=== PATIENT | female | born 1995 | race Two or more races ===

== ENCOUNTER 2021-09-01 12:28 | Emergency (ER) | payer MEDICAID, OTHER ==
[~2021-09-01] VITALS: Ht 152.4 cm; Wt 52.0 kg
[2021-09-01 14:13] LABS: Basophils # (auto) 0 10 ^3/uL (0-0.2); Basophils % (auto) 0.3 % (0.0-2.0); Eosinophils # (auto) 0 10 ^3/uL (0-0.8); Eosinophils % (auto) 0.4 % (0.0-7.0); Hemoglobin 13.8 g/dL (12.2-16.2); Lymphocytes # (auto) 0.7 10 ^3/uL (0.4-5.4); Lymphocytes % (auto) 11.3 % (10.0-50.0); Mean Corpuscular Hemoglobin 27.9 pg (28.0-32.0); Mean Corpuscular Hgb Conc. 32.8 g/dL (32.0-36.0); Mean Corpuscular Volume 84.9 fL (80.0-100.0); Monocytes # (auto) 0.2 10 ^3/uL (0-1.3); Monocytes % (auto) 3.1 % (0.0-12.0); Neutrophils % (auto) 84.9 % (37.0-80.0); Red Blood Cells 4.94 10^6/uL (4.0-5.20); Red Cell Distribution Width 13.6 % (11.8-14.3); White Blood Cell 5.9 10^3/uL (4.4-10.8)
[2021-09-01 14:29] LABS: Calcium 8.6 mg/dL (8.5-10.1); Potassium 4.3 mmol/L (3.5-5.1)
[2021-09-01 14:35] LABS: Albumin 3.6 g/dL (3.4-5.0); BUN/Creatinine Ratio 14.8; Bilirubin, Total 0.6 mg/dL (0.2-1.0); Total Protein 7.6 g/dL (6.4-8.2)
[2021-09-01 14:49] LABS: Urine Bacteria NONE SEEN /hpf (None Seen); Urine Blood TRACE /uL (Negative); Urine WBC 196 /hpf (0 - 5); Urine WBC Clumps PRESENT /hpf (None Seen)
[2021-09-01] MEDS ORDERED: ONDANSETRON HCL 4 MG/2 ML VIAL IV ONE (18:30)
[2021-09-01] MEDS ORDERED: MORPHINE SULFATE INJ 2 MG/ml SYRG IV ONE (18:30)
[2021-09-01] MEDS ORDERED: cefTRIAXone 1GM/50ML D5W 50 ML IV ONE (18:30)
[2021-09-01 18:48] VITALS: BP 117/73
== END 2021-09-01 19:22 | disposition hospice, inpatient (51) ==
LOC: ER 12:28 → EDBD 12:28 → ER 19:22
DX: R55 Syncope and collapse (principal); N39.0 Urinary tract infection, site not specified; G93.5 Compression of brain; Z20.822 Contact with and (suspected) exposure to COVID-19
CPT/HCPCS: 36415; 70450; 80053; 81001; 84484; 85025; 87426; 93005; 96365; 96375; 99285; J0696; J2270; J2405

== ENCOUNTER 2021-10-11 14:17 | Emergency (ER) | payer MEDICAID ==
[~2021-10-11] VITALS: Ht 157.5 cm; Wt 45.4 kg
[2021-10-11 14:32] VITALS: BP 112/73
[2021-10-11 15:30] LABS: Basophils # (auto) 0 10 ^3/uL (0-0.2); Basophils % (auto) 0.4 % (0.0-2.0); Eosinophils # (auto) 0.1 10 ^3/uL (0-0.8); Eosinophils % (auto) 2.2 % (0.0-7.0); Hematocrit 37.1 % (36.0-46.0); Hemoglobin 12.3 g/dL (12.2-16.2); Lymphocytes # (auto) 1.2 10 ^3/uL (0.4-5.4); Lymphocytes % (auto) 18.6 % (10.0-50.0); Mean Corpuscular Hemoglobin 28.3 pg (28.0-32.0); Mean Corpuscular Volume 85.7 fL (80.0-100.0); Monocytes # (auto) 0.3 10 ^3/uL (0-1.3); Monocytes % (auto) 5.2 % (0.0-12.0); Neutrophils # (auto) 4.6 10 ^3/uL (1.6-8.6); Neutrophils % (auto) 73.6 % (37.0-80.0); Nucleated Red Blood Cells % 0.1 %; Red Blood Cells 4.33 10^6/uL (4.0-5.20); Red Cell Distribution Width 13.6 % (11.8-14.3); White Blood Cell 6.2 10^3/uL (4.4-10.8)
[2021-10-11 15:45] LABS: Albumin 3.5 g/dL (3.4-5.0); Calcium 8.9 mg/dL (8.5-10.1); Potassium 3.5 mmol/L (3.5-5.1)
[2021-10-11 16:00] LABS: BUN/Creatinine Ratio 11.7; Bilirubin, Total 0.4 mg/dL (0.2-1.0); Total Protein 7.6 g/dL (6.4-8.2)
[2021-10-11 17:22] LABS: Urine Bacteria NONE SEEN /hpf (None Seen); Urine Blood Negative /uL (Negative); Urine Specific Gravity 1.011 (1.001-1.035); Urine WBC 36 /hpf (0 - 5)
[2021-10-11] MEDS ORDERED: SODIUM CHLORIDE 0.9% 1,000 ML IV ONE (19:15)
[2021-10-11] MEDS ORDERED: NITR-87 PO (19:47)
== END 2021-10-12 00:10 | disposition left against medical advice (07) ==
LOC: ER 14:17
DX: N12 Tubulo-interstitial nephritis, not specified as acute or chronic (principal); R41.82 Altered mental status, unspecified; R55 Syncope and collapse
CPT/HCPCS: 36415; 70450; 80053; 81001; 85025; 93005

== ENCOUNTER 2022-07-08 06:21 | Inpatient (IN) | payer MEDICAID ==
[2022-07-02 11:02] LABS: Basophils # (auto) 0 10 ^3/uL (0-0.2); Basophils % (auto) 0.7 % (0.0-2.0); Eosinophils # (auto) 0.1 10 ^3/uL (0-0.8); Eosinophils % (auto) 1.7 % (0.0-7.0); Hemoglobin 13.6 g/dL (12.2-16.2); Lymphocytes # (auto) 1.4 10 ^3/uL (0.4-5.4); Mean Corpuscular Hemoglobin 28.5 pg (28.0-32.0); Mean Corpuscular Hgb Conc. 33.2 g/dL (32.0-36.0); Mean Corpuscular Volume 85.6 fL (80.0-100.0); Monocytes # (auto) 0.3 10 ^3/uL (0-1.3); Monocytes % (auto) 6.8 % (0.0-12.0); Neutrophils # (auto) 2.5 10 ^3/uL (1.6-8.6); Neutrophils % (auto) 58.8 % (37.0-80.0); Nucleated Red Blood Cells % 0.1 %; Red Blood Cells 4.79 10^6/uL (4.0-5.20); Red Cell Distribution Width 13.6 % (11.8-14.3); White Blood Cell 4.3 10^3/uL (4.4-10.8)
[2022-07-02 11:14] LABS: Urine Bacteria NONE SEEN /hpf (None Seen); Urine Blood Negative /uL (Negative); Urine Specific Gravity 1.008 (1.001-1.035); Urine WBC 2 /hpf (0 - 5)
[2022-07-02 11:28] LABS: INR 1.01 (0.9-1.15); Partial Thromboplastin Time 28.8 sec (24.6-33.4)
[2022-07-02 11:37] LABS: Albumin 3.4 g/dL (3.4-5.0); Calcium 8.8 mg/dL (8.5-10.1); Potassium 3.5 mmol/L (3.5-5.1)
[2022-07-02 11:41] LABS: BUN/Creatinine Ratio 10.2 (10.0-20.0); Bilirubin, Total 0.4 mg/dL (0.2-1.0); Total Protein 7.1 g/dL (6.4-8.2)
[~2022-07-08] VITALS: Ht 157.5 cm; Wt 47.2 kg
[2022-07-08] MEDS ORDERED: IOHEXOL 300 MG/ML 100ML BOTTLE IJ ONE (06:58)
[2022-07-08] MEDS ORDERED: CIPROFLOXACIN 400MG/200ML 200 ML IV ONE (07:17)
[2022-07-08] MEDS ORDERED: fentaNYL CITRATE 100 MCG/2 ML VL ONE (07:25)
[2022-07-08] MEDS ORDERED: MEPERIDINE HCL (25 MG/ML) 1ML VIAL ONE (07:25)
[2022-07-08] MEDS ORDERED: MIDAZOLAM HCL 2MG/2ML 2ml VIAL (1mg/ml) ONE (07:25)
[2022-07-08] MEDS ORDERED: DexAMETHasone SOD PHOS 10MG/1ML VIAL INJ ONE (07:50)
[2022-07-08] MEDS ORDERED: PROPOFOL 10 MG/ML 20 ML IV ONE (07:50)
[2022-07-08] MEDS ORDERED: diphenhdrAMINE HCL 50 MG/1 ML VL ONE (07:50)
[2022-07-08] MEDS ORDERED: MIDAZOLAM HCL 2MG/2ML 2ml VIAL (1mg/ml) IV PRN (08:00)
[2022-07-08] MEDS ORDERED: ePHEDrine SULFATE 50 MG/ML AMP IV PRN (08:00)
[2022-07-08] MEDS ORDERED: LABETALOL HCL 5 MG/ML 4ML SYRINGE IV PRN (08:00)
[2022-07-08] MEDS ORDERED: MORPHINE SULFATE 4 MG/ML SYR/VIAL IV PRN (08:00)
[2022-07-08] MEDS ORDERED: ONDANSETRON HCL 4 MG/2 ML VIAL IV PRN (08:00)
[2022-07-08] MEDS ORDERED: NITROGLYCERIN 0.4 MG SL TAB SL PRN (08:30)
[2022-07-08] MEDS ORDERED: MORPHINE SULFATE INJ 2 MG/ml SYRG IV PRN (08:30)
[2022-07-08] MEDS ORDERED: ONDANSETRON HCL 4 MG/2 ML VIAL IV ONE (08:40)
[2022-07-08] MEDS ORDERED: MORPHINE SULFATE 4 MG/ML SYR/VIAL IV ONE (08:40)
[2022-07-08] MEDS ORDERED: FUROSEMIDE 40 MG/4 ML VIAL IV ONE (09:15)
[2022-07-08 14:15] VITALS: BP 108/71
== END 2022-07-08 14:33 | disposition home or self-care (01) | DRG 465 ==
LOC: SUR 06:21 → OBSVTOIN 08:31 → OVERFLOW 08:31
PROVIDERS: ADMIT Urology; ATTEND Urology
PROC: 0TJB8ZZ Inspection of Bladder, Via Natural or Artificial Opening Endoscopic (ICD-10-PCS; principal; 2022-07-08 07:30)
DX: N13.30 Unspecified hydronephrosis (principal); N20.0 Calculus of kidney; N31.9 Neuromuscular dysfunction of bladder, unspecified; Q05.9 Spina bifida, unspecified; Z87.440 Personal history of urinary (tract) infections
CPT/HCPCS: 36415; 74176; 78707; 80053; 81001; 84132; 84702; 85025; 85610; 85730; 87086; G0378; J1100; J2250; J2405; J2704

== ENCOUNTER 2022-07-28 13:52 | Inpatient (IN) | payer MEDICAID ==
[~2022-07-28] VITALS: Ht 157.5 cm; Wt 50.0 kg
[2022-07-28 15:46] LABS: Urine Bacteria NONE SEEN /hpf (None Seen); Urine Blood Negative /uL (Negative); Urine Specific Gravity 1.008 (1.001-1.035); Urine WBC 34 /hpf (0 - 5)
[2022-07-28] MEDS ORDERED: SODIUM CHLORIDE 0.9% 1,000 ML IV ONE (17:45)
[2022-07-28] MEDS ORDERED: KETOROLAC TROMETH 30 MG/ML 1ML VIAL IV ONE (17:45)
[2022-07-28] MEDS ORDERED: ONDANSETRON HCL 4 MG/2 ML VIAL IV ONE (18:00)
[2022-07-28 18:34] LABS: Albumin 3.7 g/dL (3.4-5.0); Basophils # (auto) 0 10 ^3/uL (0-0.2); Basophils % (auto) 0.4 % (0.0-2.0); Calcium 8.4 mg/dL (8.5-10.1); Eosinophils # (auto) 0 10 ^3/uL (0-0.8); Eosinophils % (auto) 0.9 % (0.0-7.0); Hematocrit 39.1 % (36.0-46.0); Hemoglobin 13.1 g/dL (12.2-16.2); Lymphocytes # (auto) 1.7 10 ^3/uL (0.4-5.4); Lymphocytes % (auto) 35.1 % (10.0-50.0); Mean Corpuscular Hemoglobin 28.5 pg (28.0-32.0); Mean Corpuscular Hgb Conc. 33.5 g/dL (32.0-36.0); Mean Corpuscular Volume 85.1 fL (80.0-100.0); Monocytes # (auto) 0.3 10 ^3/uL (0-1.3); Monocytes % (auto) 5.7 % (0.0-12.0); Neutrophils # (auto) 2.9 10 ^3/uL (1.6-8.6); Neutrophils % (auto) 57.9 % (37.0-80.0); Nucleated Red Blood Cells % 0.4 %; Potassium 4.1 mmol/L (3.5-5.1); Red Blood Cells 4.59 10^6/uL (4.0-5.20); Red Cell Distribution Width 13.7 % (11.8-14.3)
[2022-07-28 18:38] LABS: BUN/Creatinine Ratio 10.3 (10.0-20.0); Bilirubin, Total 0.4 mg/dL (0.2-1.0); Total Protein 6.8 g/dL (6.4-8.2)
[2022-07-28] MEDS ORDERED: cefTRIAXone 1GM/50ML D5W 50 ML IV ONE (20:00)
[2022-07-28 22:42] LABS: Urine Bacteria NONE SEEN /hpf (None Seen); Urine Blood Negative /uL (Negative); Urine Specific Gravity 1.008 (1.001-1.035); Urine WBC 13 /hpf (0 - 5)
[2022-07-29 07:03] LABS: Basophils # (auto) 0 10 ^3/uL (0-0.2); Basophils % (auto) 0.5 % (0.0-2.0); Eosinophils # (auto) 0.1 10 ^3/uL (0-0.8); Eosinophils % (auto) 1.2 % (0.0-7.0); Hematocrit 35.1 % (36.0-46.0); Hemoglobin 12.1 g/dL (12.2-16.2); Lymphocytes # (auto) 1.3 10 ^3/uL (0.4-5.4); Lymphocytes % (auto) 25.9 % (10.0-50.0); Mean Corpuscular Hgb Conc. 34.4 g/dL (32.0-36.0); Mean Corpuscular Volume 84.3 fL (80.0-100.0); Monocytes # (auto) 0.3 10 ^3/uL (0-1.3); Monocytes % (auto) 5.8 % (0.0-12.0); Neutrophils # (auto) 3.3 10 ^3/uL (1.6-8.6); Neutrophils % (auto) 66.6 % (37.0-80.0); Nucleated Red Blood Cells % 0.1 %; Red Blood Cells 4.16 10^6/uL (4.0-5.20); Red Cell Distribution Width 13.3 % (11.8-14.3)
[2022-07-29 07:36] LABS: Potassium 4.5 mmol/L (3.5-5.1)
[2022-07-29 07:43] LABS: BUN/Creatinine Ratio 10.8 (10.0-20.0); Bilirubin, Total 0.5 mg/dL (0.2-1.0); Calcium 8.4 mg/dL (8.5-10.1)
[2022-07-29] MEDS ORDERED: cefTRIAXone 1GM/50ML D5W 50 ML IV SCH (09:00)
[2022-07-29] MEDS: PANTOPRAZOLE 40 MG/10 ML VIAL INJ IV SCH (09:58)
[2022-07-29] MEDS ORDERED: IOTHALAMATE MEGLUMINE INJ 250ML BOT UR ONE (10:05)
[2022-07-29] MEDS ORDERED: ONDANSETRON HCL 4 MG/2 ML VIAL IV PRN (13:30)
[2022-07-29] MEDS ORDERED: ERTAPENEM SOD INJ 1 GM in SODIUM CHL 0.9% 50 ML IV ONE (13:30)
[2022-07-29] MEDS: SODIUM CHLORIDE 0.9% 1,000 ML IV SCH ×2 (17:31→23:41)
[2022-07-29] MEDS: MORPHINE SULFATE INJ 2 MG/ml SYRG IV PRN ×2 (17:32→21:56)
[2022-07-29 22:00] VITALS: BP_SYST 125; BP_SYST 129; BP_SYST 138; BP_DIAS 89; BP_DIAS 93; BP_DIAS 94
[2022-07-29] MEDS: AMITRIPTYLINE HCL 10 MG TAB PO SCH (23:40)
[2022-07-29 23:44] VITALS: BP 129/93
[2022-07-30] MEDS ORDERED: CEPH250C PO (01:46)
[2022-07-30] MEDS ORDERED: ACET-1304 PO (01:46)
[2022-07-30 05:00] VITALS: BP_SYST 115; BP_SYST 117; BP_DIAS 65; BP_DIAS 71; BP_DIAS 73
[2022-07-30 05:59] LABS: Protein, Urine 87.6 mg/dL (0.0-11.9)
[2022-07-30] MEDS: SODIUM CHLORIDE 0.9% 1,000 ML IV SCH ×3 (06:00→19:30)
[2022-07-30 06:48] LABS: Basophils # (auto) 0 10 ^3/uL (0-0.2); Basophils % (auto) 0.7 % (0.0-2.0); Eosinophils # (auto) 0.1 10 ^3/uL (0-0.8); Eosinophils % (auto) 3.4 % (0.0-7.0); Hematocrit 33.4 % (36.0-46.0); Hemoglobin 11.4 g/dL (12.2-16.2); Lymphocytes # (auto) 1.4 10 ^3/uL (0.4-5.4); Lymphocytes % (auto) 32.8 % (10.0-50.0); Mean Corpuscular Hemoglobin 28.6 pg (28.0-32.0); Mean Corpuscular Hgb Conc. 34.1 g/dL (32.0-36.0); Mean Corpuscular Volume 83.8 fL (80.0-100.0); Monocytes # (auto) 0.4 10 ^3/uL (0-1.3); Monocytes % (auto) 9.9 % (0.0-12.0); Neutrophils # (auto) 2.2 10 ^3/uL (1.6-8.6); Neutrophils % (auto) 53.2 % (37.0-80.0); Nucleated Red Blood Cells % 0.1 %; Red Blood Cells 3.99 10^6/uL (4.0-5.20); White Blood Cell 4.2 10^3/uL (4.4-10.8)
[2022-07-30 06:58] LABS: BUN/Creatinine Ratio 9.4 (10.0-20.0); Calcium 8.3 mg/dL (8.5-10.1); Potassium 4.2 mmol/L (3.5-5.1)
[2022-07-30 08:00] VITALS: BP_SYST 101; BP_SYST 113; BP_SYST 121; BP_DIAS 67; BP_DIAS 73; BP_DIAS 74
[2022-07-30] MEDS: ERTAPENEM SOD INJ 1 GM in SODIUM CHL 0.9% 50 ML IV SCH (09:50)
[2022-07-30] MEDS: PANTOPRAZOLE 40 MG/10 ML VIAL INJ IV SCH (09:51)
[2022-07-30] MEDS ORDERED: LACTULOSE 20Gm/30ML SOLN PO ONE (10:00)
[2022-07-30 12:00] VITALS: BP_SYST 109; BP_SYST 114; BP_SYST 120; BP_DIAS 77; BP_DIAS 85
[2022-07-30 16:00] VITALS: BP_SYST 109; BP_SYST 119; BP_SYST 120; BP_DIAS 80; BP_DIAS 81; BP_DIAS 84
[2022-07-30] MEDS: ACETAMINOPHEN 500 MG TAB PO PRN (16:30)
[2022-07-30] MEDS: AMITRIPTYLINE HCL 10 MG TAB PO SCH (21:13)
[2022-07-30 23:17] VITALS: BP_SYST 120; BP_SYST 129; BP_SYST 133; BP_DIAS 85; BP_DIAS 86; BP_DIAS 89
[2022-07-31] MEDS: SODIUM CHLORIDE 0.9% 1,000 ML IV SCH ×2 (05:30→15:30)
[2022-07-31 05:36] VITALS: BP_SYST 110; BP_SYST 113; BP_SYST 119; BP_DIAS 70; BP_DIAS 74; BP_DIAS 78
[2022-07-31 09:23] VITALS: BP 133/75
[2022-07-31] MEDS: PANTOPRAZOLE 40 MG/10 ML VIAL INJ IV SCH (10:34)
[2022-07-31] MEDS: ERTAPENEM SOD INJ 1 GM in SODIUM CHL 0.9% 50 ML IV SCH (10:35)
[2022-07-31 13:10] VITALS: BP 114/69
[2022-07-31 16:20] VITALS: BP 128/80
[2022-07-31] MEDS: AMITRIPTYLINE HCL 10 MG TAB PO SCH (21:46)
[2022-07-31 22:00] VITALS: BP 115/86
[2022-08-01] MEDS: SODIUM CHLORIDE 0.9% 1,000 ML IV SCH ×3 (01:30→21:30)
[2022-08-01 05:00] VITALS: BP 112/70
[2022-08-01 06:53] LABS: Albumin 2.7 g/dL (3.4-5.0); BUN/Creatinine Ratio 11.4 (10.0-20.0); Calcium 8.2 mg/dL (8.5-10.1)
[2022-08-01 06:55] LABS: Basophils # (auto) 0 10 ^3/uL (0-0.2); Basophils % (auto) 0.6 % (0.0-2.0); Eosinophils # (auto) 0.2 10 ^3/uL (0-0.8); Eosinophils % (auto) 3.9 % (0.0-7.0); Hematocrit 33.1 % (36.0-46.0); Hemoglobin 11.6 g/dL (12.2-16.2); Lymphocytes # (auto) 1.7 10 ^3/uL (0.4-5.4); Mean Corpuscular Hemoglobin 29.2 pg (28.0-32.0); Mean Corpuscular Hgb Conc. 35.1 g/dL (32.0-36.0); Monocytes # (auto) 0.3 10 ^3/uL (0-1.3); Monocytes % (auto) 7.6 % (0.0-12.0); Neutrophils % (auto) 47.9 % (37.0-80.0); Nucleated Red Blood Cells % 0.1 %; Red Blood Cells 3.99 10^6/uL (4.0-5.20); Red Cell Distribution Width 12.7 % (11.8-14.3); White Blood Cell 4.3 10^3/uL (4.4-10.8)
[2022-08-01 06:56] LABS: Bilirubin, Total 0.3 mg/dL (0.2-1.0); Total Protein 5.9 g/dL (6.4-8.2)
[2022-08-01 08:46] VITALS: BP 111/76
[2022-08-01] MEDS ORDERED: NITR-87 PO (09:08)
[2022-08-01] MEDS: ERTAPENEM SOD INJ 1 GM in SODIUM CHL 0.9% 50 ML IV SCH (09:26)
[2022-08-01] MEDS: PANTOPRAZOLE 40 MG/10 ML VIAL INJ IV SCH (09:27)
[2022-08-01 12:42] VITALS: BP 123/65
[2022-08-01 16:36] VITALS: BP 126/65
[2022-08-01 22:00] VITALS: BP 138/91
[2022-08-01] MEDS: ACETAMINOPHEN 500 MG TAB PO PRN (23:52)
[2022-08-02 05:00] VITALS: BP 106/65
[2022-08-02] MEDS: SODIUM CHLORIDE 0.9% 1,000 ML IV SCH (07:30)
[2022-08-02 08:00] VITALS: BP 97/64
[2022-08-02] MEDS: ACETAMINOPHEN 500 MG TAB PO PRN (08:41)
[2022-08-02] MEDS: ERTAPENEM SOD INJ 1 GM in SODIUM CHL 0.9% 50 ML IV SCH (10:18)
[2022-08-02 12:00] VITALS: BP 111/68
== END 2022-08-02 14:30 | disposition home or self-care (01) | DRG 54 ==
LOC: ER 13:52 → TELE 21:18 → TELE-WESTW 07-29 22:43
PROVIDERS: ADMIT Nurse Practitioner Family; ATTEND Internal Medicine
DX: R51.9 Headache, unspecified (principal); N17.9 Acute kidney failure, unspecified; R55 Syncope and collapse; D64.9 Anemia, unspecified; K59.00 Constipation, unspecified; N32.0 Bladder-neck obstruction; N18.32 Chronic kidney disease, stage 3b; N26.1 Atrophy of kidney (terminal); D72.819 Decreased white blood cell count, unspecified; N31.9 Neuromuscular dysfunction of bladder, unspecified; R07.9 Chest pain, unspecified; R80.9 Proteinuria, unspecified; Z87.440 Personal history of urinary (tract) infections; Q05.9 Spina bifida, unspecified; N39.0 Urinary tract infection, site not specified
CPT/HCPCS: 36415; 51702; 70450; 71046; 72193; 74176; 80048; 80053; 80061; 81001; 82306; 82570; 83970; 84100; 84156; 84300; 84443; 84484; 84702; 85025; 87081; 87086; 93005; 93306; 95819; 96361; 96365; 96375; 97163; C9113; G0378; J0696; J1335; J1885; J2405

== ENCOUNTER 2022-09-15 10:16 | Emergency (ER) | payer MEDICAID ==
[~2022-09-15] VITALS: Ht 165.1 cm; Wt 52.3 kg
[~2022-09-15 10:16] MED LIST: ACET-1304 PO; CEPH250C PO; NITR-87 PO
[2022-09-15] MEDS ORDERED: SODIUM CHLORIDE 0.9% 1,000 ML IV ONE (10:45)
[2022-09-15 11:07] LABS: Basophils # (auto) 0 10 ^3/uL (0-0.2); Basophils % (auto) 0.5 % (0.0-2.0); Eosinophils # (auto) 0 10 ^3/uL (0-0.8); Eosinophils % (auto) 0.9 % (0.0-7.0); Hematocrit 39.8 % (36.0-46.0); Hemoglobin 13.6 g/dL (12.2-16.2); Lymphocytes # (auto) 1.3 10 ^3/uL (0.4-5.4); Lymphocytes % (auto) 32.7 % (10.0-50.0); Mean Corpuscular Hemoglobin 29.4 pg (28.0-32.0); Mean Corpuscular Hgb Conc. 34.2 g/dL (32.0-36.0); Mean Corpuscular Volume 85.9 fL (80.0-100.0); Monocytes # (auto) 0.2 10 ^3/uL (0-1.3); Neutrophils # (auto) 2.3 10 ^3/uL (1.6-8.6); Neutrophils % (auto) 59.9 % (37.0-80.0); Nucleated Red Blood Cells % 0.2 %; Red Blood Cells 4.63 10^6/uL (4.0-5.20); Red Cell Distribution Width 14.6 % (11.8-14.3); White Blood Cell 3.9 10^3/uL (4.4-10.8)
[2022-09-15 11:25] VITALS: PULSE 90; RESP 14; O2SAT 97
[2022-09-15 11:35] LABS: Calcium 8.7 mg/dL (8.5-10.1); Potassium 3.8 mmol/L (3.5-5.1)
[2022-09-15 11:41] LABS: Albumin 3.6 g/dL (3.4-5.0); BUN/Creatinine Ratio 8.3 (10.0-20.0); Bilirubin, Total 0.6 mg/dL (0.2-1.0); Total Protein 6.9 g/dL (6.4-8.2)
[2022-09-15] MEDS ORDERED: KETOROLAC TROMETH 30 MG/ML 1ML VIAL IV ONE (12:15)
[2022-09-15] MEDS ORDERED: METOCLOPRAMIDE HCL 5MG/ml INJ 2ml VIAL IV ONE (12:15)
[2022-09-15 16:03] LABS: Urine Bacteria NONE SEEN /hpf (None Seen); Urine Blood Negative /uL (Negative); Urine Clarity Clear (Clear); Urine Color Yellow (Yellow); Urine Protein, UAD 1+ (Negative); Urine Specific Gravity 1.008 (1.001-1.035); Urine Urobilinogen Normal (Negative); Urine WBC <1 /hpf (0 - 5)
[2022-09-15 16:12] LABS: Alcohol, Urine < 3.0 mg/dL (0-10); Amphetamine Screen, Urine NEGATIVE (NEGATIVE); Barbiturate Scree,Urine NEGATIVE (NEGATIVE); Benzodiazephine Screen, Urine NEGATIVE (NEGATIVE); Cannabinoid Screen, Urine NEGATIVE (NEGATIVE); Cocaine Screen, Urine NEGATIVE (NEGATIVE); Opiate Scree,Urine NEGATIVE (NEGATIVE); Phencyclidine Screen, Urine NEGATIVE (NEGATIVE)
[2022-09-15] MEDS ORDERED: HYDR-4798 PO (16:43)
[2022-09-15] MEDS ORDERED: NAP500T PO (16:43)
[2022-09-15 16:55] VITALS: BP 102/66; PULSE 70; RESP 12; O2SAT 99
== END 2022-09-15 17:15 | disposition home or self-care (01) ==
LOC: EDBD 10:16 → ER 10:16
DX: R55 Syncope and collapse (principal); R10.2 Pelvic and perineal pain; G43.909 Migraine, unspecified, not intractable, without status migrainosus; N18.30 Chronic kidney disease, stage 3 unspecified; Z79.899 Other long term (current) drug therapy; Z88.1 Allergy status to other antibiotic agents; Z87.440 Personal history of urinary (tract) infections
CPT/HCPCS: 36415; 70450; 71046; 80053; 80307; 81001; 83735; 84702; 85025; 93005; 96361; 96374; 96375; 99285; J1885; J2765; J7030

== ENCOUNTER 2024-07-27 15:34 | Inpatient (IN) | payer MEDICAID ==
[~2024-07-27] VITALS: Ht 157.5 cm; Wt 47.0 kg
[~2024-07-27 15:34] MED LIST changes: +HYDR-4798 PO; +NAP500T PO
--- NOTE | 2024-07-27 15:51 | ED.PDOC ---
History of Present Illness HPI Comments 29-year-old female who comes in with chief complaint of right lower quadrant or pelvic pain. The patient states that the pain has been off and on for the past one month. She denies any fever or chills. She states that the pain is now a 5/10. It is associated with some nausea and vomiting and the patient did have some mild diarrhea yesterday. The patient has no other complaints at this time. Time Seen by MD: 15:36 Primary Care Provider: [facility] ([facility]) Reviewed Notes: Nurses Notes, Medications, Allergies (Allergies to amoxicillin) Allergies: Coded Allergies: Amoxicillin (Verified Allergy, Severe, 09/15/22) Home Meds Active Scripts Hydrocodone-Acetaminophen (Hydrocodone Bitartrate/AC 10-325 mg) 1 Tab Tab, 1 TAB PO BID for 5 Days, #10 TAB Prov:LUCILLE PEREZ MD 09/15/22 Naproxen (NAPROSYN TABLET) 500 Mg Tb, 1 TAB PO BID for 5 Days, #10 TAB 1 Refill Prov:LUCILLE PEREZ MD 09/15/22 Nitrofurantoin Monohydrate Mac (Macrobid) 100 Mg Cap, 100 MG PO BID for 5 Days, #10 CAP Prov:VLADIMIR VERGARA MD 08/01/22 Reported Medications Cephalexin (KEFLEX CAPSULE) 250 Mg Cp, 500 MG PO TID, CAP 07/30/22 Acetaminophen (Tylenol Extra Strength) 500 Mg Tab, 500 MG PO BID, TAB 07/30/22 Information Source: Patient Mode of Arrival: Ambulatory Severity: Moderate Timing: Weeks Duration: Intermittent Prehospital treatment: None Location: Right pelvic and abdominal pain Associated signs and symptoms Associated nausea, vomiting and diarrhea Past Medical History PAST MEDICAL HISTORY: Kidney Stones Past Medical History (Other): Spina bifida Surgical History (Other): 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 History Family History Family History: No family hx of Cancer, No family hx of DM, No family hx of Heart dash Social History Smoker: Non-Smoker Alcohol: Denies ETOH Use Drugs: Denies Drug Use Lives In: Home Constitutional: denies: chills, diaphoresis, fatigue, fever, malaise, sweats, weakness, others EENTM: denies: blurred vision, double vision, ear bleeding, ear discharge, ear drainage, ear pain, ear ringing, eye pain, eye redness, hearing loss, mouth pain, mouth swelling, nasal discharge, nose bleeding, nose congestion, nose pain, photophobia, tearing, throat pain, throat swelling, voice changes, others Respiratory: denies: cough, hemoptysis, orthopnea, SOB at rest, shortness of breath, SOB with excertion, stridor, wheezing, others Cardiovascular: denies: chest pain, dizzy spells, diaphoresis, Dyspnea on exertion, edema, irregular heart beat, left arm pain, lightheadedness, palpitations, PND, syncope, others Gastrointestinal: reports: abdominal pain; denies: abdomen distended, blood streaked bowels, constipated, diarrhea, dysphagia, difficulty swallowing, hematemesis, melena, nausea, poor appetite, poor fluid intake, rectal bleeding, rectal pain, vomiting, others Genitourinary: denies: abnormal vagina bleeding, burning, dyspareunia, dysuria, flank pain, frequency, hematuria, incontinence, pain, , vagina discharge, urgency, others Neurological: denies: dizziness, fainting, headache, left sided numbness, left sided weakness, numbness, paresthesia, pre-existing deficit, right sided numbness, right sided weakness, seizure, speech problems, tingling, tremors, weakness, others Musculoskeletal: denies: back pain, gout, joint pain, joint swelling, muscle pain, muscle stiffness, neck pain, others Integumetry: denies: bruises, change in color, change in hair/nails, dryness, laceration, lesions, lumps, rash, wounds, others Allergic/Immunocompromised: denies: Difficulty Healing, Frequent Infections, Hives, Itching, others Hematologic/Lymphatic: denies: anemia, blood clots, easy bleeding, easy bruising, swollen glands, others Endocrine: denies: excessive hunger, excessive sweating, excessive thirst, excessive urination, flushing, intolerance to cold, intolerance to heat, unexplained weight gain, unexplained weight loss, others Psychiatric: denies: anxiety, bipolar disorder, depression, hopeless, panic disorder, schizophrenia, sleepless, suicidal, others Physical Exam General Appearance: Moderate Distress HEENT: Normal ENT Inspection, Pharynx Normal, TMs Normal Neck: Full Range of Motion, Non-Tender, Normal, Normal Inspection Respiratory: Chest Non-Tender, Lungs Clear, No Accessory Muscle Use, No Respiratory Distress, Normal Breath Sounds Cardiovascular: No Edema, No JVD, No Murmur, No Gallop, Normal Peripheral Pulses, Regular Rate/Rhythm Breast Exam: Deferred Gastrointestinal: No Organomegaly, No Pulsatile Mass, Normal Bowel Sounds, RLQ, Soft, Tenderness Genitalia: Deferred Pelvic: Deferred Rectal: Deferred Extremities: No calf tenderness, Normal capillary refill, Normal inspection, Normal range of motion, Non-tender, No pedal edema Musculoskeletal : Apperance: Normal Neurologic: Alert, head refrigerating engineer II-XII nml as Tested, No Motor Deficits, Normal Affect, Normal Mood, No Sensory Deficits Cerebellar Function: Normal Reflexes: Normal Skin: Dry, Normal Color, Warm Lymphatic: No Adenopathy Was a procedure done? Was a procedure done?: No Differential Dx Considerations may include: Appendicitis, ovarian cyst, fibroid tumors X-Ray, Labs, Meds, VS Vital Signs Date Time Temp Pulse Resp B/P (MAP) Pulse Ox O2 Delivery O2 Flow Rate FiO2 07/27/24 17:27 151/112 07/27/24 17:00 Room Air* 0 21 07/27/24 17:00 98.5 91 18 151/112 (125) 98 98.5 07/27/24 16:17 98.5 85 16 148/112 (124) 98 98.5 Lab Test 07/27/24 16:20 07/27/24 00:00 Range/Units White Blood Count 5.2 4.4-10.8 10^3/uL Red Blood Count 5.04 4.0-5.20 10^6/uL Hemoglobin 13.8 12.2-16.2 g/dL Hematocrit 41.5 36.0-46.0 % Mean Corpuscular Volume 82.5 80.0-100.0 fL Mean Corpuscular Hemoglobin 27.4 L 28.0-32.0 pg Mean Corpuscular Hemoglobin Concent 33.3 32.0-36.0 g/dL Red Cell Distribution Width 15.2 H 11.8-14.3 % Platelet Count 240 140-450 10^3/uL Mean Platelet Volume 8.0 6.9-10.8 fL Neutrophils (%) (Auto) 64.1 37.0-80.0 % Lymphocytes (%) (Auto) 28.6 10.0-50.0 % Monocytes (%) (Auto) 6.1 0.0-12.0 % Eosinophils (%) (Auto) 0.8 0.0-7.0 % Basophils (%) (Auto) 0.4 0.0-2.0 % Neutrophils # (Auto) 3.4 1.6-8.6 10 ^3/uL Lymphocytes # (Auto) 1.5 0.4-5.4 10 ^3/uL Monocytes # (Auto) 0.3 0-1.3 10 ^3/uL Eosinophils # (Auto) 0 0-0.8 10 ^3/uL Basophils # (Auto) 0 0-0.2 10 ^3/uL Nucleated Red Blood Cells 0.0 % Sodium Level 142 136-145 mmol/L Potassium Level 4.0 3.5-5.1 mmol/L Chloride Level 105 98-107 mmol/L Carbon Dioxide Level 28 20-31 mmol/L Anion Gap 9 5-15 Blood Urea Nitrogen 14 9-23 mg/dL Creatinine 1.67 H 0.550-1.02 mg/dL Glomerular Filtration Rate Calc 43 >90 mL/min BUN/Creatinine Ratio 8.4 L 10.0-20.0 Serum Glucose 86 74-106 mg/dL Calcium Level 8.9 8.7-10.4 mg/dL Urine Color Colorless Yellow Urine Clarity Turbid H Clear Urine pH 6.5 5.0-9.0 Urine Specific Marlette 1.007 1.001-1.035 Urine Protein 2+ H Negative Urine Ketones Negative Negative Urine Blood Negative Negative /uL Urine Nitrite 2+ H Negative Urine Bilirubin Negative Negative Urine Urobilinogen Normal Negative mg/dL Urine Leukocyte Esterase 3+ Negative /uL Urine RBC 2 0 - 4 /hpf Urine Microscopic WBC 110 H 0-5 /HPF Urine Squamous Epithelial Cells Few <5 /hpf Urine Bacteria Many H None Seen /hpf Urine Glucose Normal Normal mg/dL Current Medications Medications (Trade) Dose Ordered Sig/Tami Route Start Time Stop Time Status Last Admin Hydralazine HCl (Apresoline Injection) 15 mg ONCE ONCE IV 07/27/24 16:30 07/27/24 16:31 DC 07/27/24 17:27 PELVIC US: Impression: 2.1 cm left ovarian cyst. The right ovary and uterus are unremarkable. Wall irregularity of the urinary bladder with multiple diverticulum, septations and echogenic structures projecting into the urinary bladder. Correlate for Possible neurogenic bladder. HEAD CT: IMPRESSION: 1. 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 It is traversing the anterior horn of the lateral ventricles and exiting skull on the right. 2. There is no acute intracranial hemorrhage 3. No subdural or subarachnoid collections. 4. There does not appear to be any significant change in ventricular size at this time. The urine test is positive for UTI The patient is being started on Rocephin 1 g IV piggyback The patient's CBC and chemistry panel are within normal limits The creatinine is 1.67 At this time, the patient will be admitted to the hospitalist Images Reviewed?: Images reviewed and evaluated by me Time of 1ST Reevaluation: 15:51 Reevaluation 1ST: Improved Patient Education/Counseling: Diagnosis, Treatment, Prognosis Family Education/Counseling: No Family Present Departure 1 Departure Time of Disposition: 18:42 Impression: Primary Impression: Intractable abdominal pain Additional Impressions: UTI (urinary tract infection) Qualified Codes: N30.00 - Acute cystitis without hematuria Hypertensive crisis Disposition: ADMITTED INPATIENT Admit to: Med Surg Condition: Fair Critical Care Note Critical Care Time?: No Stability Stability form required: No Heart Score Heart Score: Heart Score Response (Comments) Value History N/A 0 EKG N/A 0 Age N/A 0 Risk Factors N/A 0 Troponin N/A 0 Total 0 I personally scribed for PANCHO REDDY MD ([email or web address]) on 07/27/24 at 17:03. Electronically submitted by Koki Ospina ([email or web address]). I personally scribed for PANCHO REDDY MD ([email or web address]) on 07/27/24 at 17:19. Electronically submitted by Koki Ospina ([email or web address]). PANCHO REDDY MD Jul 27, 2024 15:51
--- NOTE | 2024-07-27 16:28 | DVH ---
Procedure: US PELVIC Study Date and Requested Time: 07/27/2024 03:47 PM Study Description: US PELVIC History: pain Comparison: Pelvic CT 07/29/2022 Technique: Multiple transabdominal and transvaginal high resolution nogueira-scale images obtained of the uterus and adnexa with color Doppler for evaluation of adnexal blood flow and vascularity as indicat ed. Findings: Uterus measures 8 x 4.7 x 3.7 cm, with homogeneous echotexture. Endometrium within normal limits, mell suring 0.2 cm in thickness with smooth contour. Cervix within normal limits. Right ovary measures 3.4 x 1.3 x 2.4 cm. Left ovary measures 4.8 x 2.2 x 2.4 cm with a 2.1 cm cyst. N ormal ovarian color Doppler flow bilaterally. No evidence of free fluid in the cul-de-sac. Incidental finding of multiple Echogenic projections into the urinary bladder with Urinary bladder se ptation. Impression: 2.1 cm left ovarian cyst. The right ovary and uterus are unremarkable. Wall irregularity of the urinary bladder with multiple diverticulum, septations and echogenic structu res projecting into the urinary bladder. Correlate for Possible neurogenic bladder.
[2024-07-27 16:40] LABS: Urine Bacteria MANY /hpf (None Seen); Urine Blood Negative /uL (Negative); Urine Clarity Turbid (Clear); Urine Color Colorless (Yellow); Urine Protein, UAD 2+ (Negative); Urine Specific Gravity 1.007 (1.001-1.035); Urine Squamous Epithelial Cell FEW /hpf (<5); Urine Urobilinogen Normal (Negative); Urine WBC 110 /HPF (0-5); Urine pH 6.5 (5.0-9.0)
[2024-07-27 16:43] LABS: Basophils # (auto) 0 10 ^3/uL (0-0.2); Basophils % (auto) 0.4 % (0.0-2.0); Eosinophils # (auto) 0 10 ^3/uL (0-0.8); Eosinophils % (auto) 0.8 % (0.0-7.0); Hematocrit 41.5 % (36.0-46.0); Hemoglobin 13.8 g/dL (12.2-16.2); Lymphocytes # (auto) 1.5 10 ^3/uL (0.4-5.4); Lymphocytes % (auto) 28.6 % (10.0-50.0); Mean Corpuscular Hemoglobin 27.4 pg (28.0-32.0); Mean Corpuscular Hgb Conc. 33.3 g/dL (32.0-36.0); Mean Corpuscular Volume 82.5 fL (80.0-100.0); Monocytes # (auto) 0.3 10 ^3/uL (0-1.3); Monocytes % (auto) 6.1 % (0.0-12.0); Neutrophils # (auto) 3.4 10 ^3/uL (1.6-8.6); Neutrophils % (auto) 64.1 % (37.0-80.0); Platelet Count (auto) 240 10^3/uL (140-450); Red Blood Cells 5.04 10^6/uL (4.0-5.20); Red Cell Distribution Width 15.2 % (11.8-14.3); White Blood Cell 5.2 10^3/uL (4.4-10.8)
[2024-07-27 16:46] LABS: Chloride 105 mmol/L (98-107); Sodium 142 mmol/L (136-145)
[2024-07-27 16:47] LABS: Anion Gap 9 (5-15); Calcium 8.9 mg/dL (8.7-10.4); Carbon Dioxide 28 mmol/L (20-31)
[2024-07-27 16:52] LABS: BUN/Creatinine Ratio 8.4 (10.0-20.0); Blood Urea Nitrogen 14 mg/dL (9-23); Glucose 86 mg/dL (74-106)
--- NOTE | 2024-07-27 17:04 | DVH ---
EXAM: CT HEAD WITHOUT CONTRAST INDICATION: Headache with elevated blood pressure TECHNIQUE: CT of the head without intravenous contrast. Radiation Dose Information: CT Dose: CTDI volume is 53.5 mGy. Dose-length product is 1054.0 mGy*cm The dose indicators for CT are the volume Computed Tomography (CT) Dose Index (CTDIvol) and the Dose Length Product (DLP), and are measured in units of mGy and mGy-cm, respectively. These indicators are not patient dose, but values generated from the CT scanner acquisition factors. The report includes radiation exposure data for exposures received during this examination. COMPARISON: CT HEAD WITHOUT CONTRAST on DOS: 09/15/22, CT HEAD WITHOUT CONTRAST on DOS: 07/28/22, HEAD W ITHOUT CONTRAST on DOS: 10/11/21 FINDINGS: There is no evidence of acute intracranial hemorrhage, extra-axial collection, mass effect, midline s hift, herniation or hydrocephalus. The ventricles, sulci and cisterns are age appropriate. Ocular shunt tube traverses the anterior horn of the lateral ventricles and axis skull on the right. The nogueira-white differentiation is intact. Patchy periventricular and subcortical white matter hypoattenuation is nonspecific but may be related to small vessel ischemic disease. The visualized paranasal sinuses and mastoid air cells are clear. The surrounding soft tissues and osseous structures are unremarkable. IMPRESSION: 1. 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 It is traversi ng the anterior horn of the lateral ventricles and exiting skull on the right. 2. There is no acute intracranial hemorrhage 3. No subdural or subarachnoid collections. 4. There does not appear to be any significant change in ventricular size at this time.
[2024-07-27] MEDS: hydrALAZINE HCL 20 MG/ML VL IV ONE (17:27)
[2024-07-27] MEDS: cefTRIAXone 1GM/50ML D5W 50 ML IV ONE (19:23)
[2024-07-27] MEDS: ONDANSETRON HCL 4 MG/2 ML VIAL IV ONE (19:29)
[2024-07-27] MEDS: MORPHINE SULFATE 4 MG/ML SYR/VIAL IV ONE (19:30)
[2024-07-27] MEDS: SODIUM CHLORIDE 0.9% 1,000 ML IV SCH ×2 (21:15→22:08)
[2024-07-27] MEDS ORDERED: MORPHINE SULFATE INJ 2 MG/ml SYRG IV PRN (21:15)
[2024-07-27] MEDS ORDERED: ONDANSETRON HCL 4 MG/2 ML VIAL IV PRN (21:15)
[2024-07-27] MEDS ORDERED: NITROGLYCERIN 0.4 MG SL TAB SL PRN (21:15)
[2024-07-27 21:56] LABS: Albumin 4.5 g/dL (3.2-4.8); Bilirubin, Direct 0.1 mg/dL (<0.3); Bilirubin, Total 0.5 mg/dL (0.2-1.0); Total Protein 7.5 g/dL (5.7-8.2)
[2024-07-27] MEDS: PANTOPRAZOLE 40 MG/10 ML VIAL INJ IV SCH (22:09)
[2024-07-27 22:37] LABS: Amphetamine Screen, Urine Neg (NEGATIVE); Barbiturate Scree,Urine Neg (NEGATIVE); Benzodiazephine Screen, Urine Neg (NEGATIVE); Cannabinoid Screen, Urine Neg (NEGATIVE); Cocaine Screen, Urine Neg (NEGATIVE); Opiate Scree,Urine Neg (NEGATIVE); Phencyclidine Screen, Urine Neg (NEGATIVE)
--- NOTE | 2024-07-27 22:37 | DVH ---
US KIDNEY INDICATION: rule out renal obstruction, ureter, and bladder TECHNIQUE: Multiple real-time sonographic images of the kidneys and bladder were obtained. COMPARISON: CT abdomen pelvis 07/28/2022 FINDINGS: The right kidney measures 9.5 cm in length, which is normal in size. There is normal echogenicity of the right kidney. Right renal hydronephrosis versus renal cysts. The left kidney measures 11.8 cm in length, which is normal in size. There is normal echogenicity of the left kidney. Left renal hydronephrosis versus renal cysts. No large intraluminal masses are seen in the bladder. Prior to voiding the bladder volume measures volume 639 mL cc. Patient did not void IMPRESSION: 1. 9.5 cm long right kidney. 11.8 cm long left kidney. 2. Bilateral renal cysts versus bilateral hydronephrosis. 3. Bladder volume 639 mL. Patient did not void. 4. Debris noted in the bladder. 5. Ureteral jets not visualized.
--- NOTE | 2024-07-27 23:51 | DVHHPRES ---
History of Present Illness Resident Creating Document: AMANDA CLIFTON RESIDENT History of Present Illness Ms. Hernandez, 29-year-old female with past medical history of recurrent UTI, CKD, bilateral hydronephrosis, recurrent stone, hydrocephalus status post PARTS CLASSIFIER shunt, spina bifida, neurogenic bladder, presents with a one-month history of intermittent right lower quadrant or pelvic pain, currently rated at 5 out of 10. The pain is associated with nausea, vomiting, and a recent episode of mild diarrhea, but she denies any fever or chills. She has a past history of kidney stones, spina bifida, and a PARTS CLASSIFIER shunt placement. There is no pertinent gynecological history. Her family history is negative for cancer, diabetes, and heart disease. 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 Family History: None, Other (no partinant FM) Smoke: No ALCOHOL: none Drugs: None Lives: with Family (Home ) Domestic Violence: Neg Review of Systems Constitutional: Yes: Fever, Chills, Malaise; No: Sweats, Weakness, Other Eyes: No: Pain, Vision change, Conjunctivae inflammation, Eyelid inflammation, Other, Redness ENT: No: Ear pain, Ear discharge, Nose pain, Nose discharge, Nose congestion, Mouth pain, Mouth swelling, Throat pain, Throat swelling, Other Respiratory: No: Cough, Dry, Shortness of breath, SOB with excertion, Wheezing, Hemoptysis, Pleuritic Pain, Sputum, Wheezing, Other Cardiovascular: No: Chest Pain, Palpitations, Orthopnea, Paroxysmal Noc. Dyspnea, Edema, Lt Headedness, Other Gastrointestinal: Nausea, Abdominal Pain, Diarrhea; No: Vomiting, Constipation, Melena, Hematochezia, Other Genitourinary: Dysuria, Frequency, Incontinence, Hematuria, Retention, Other (Lower abdominal fullness) Musculoskeletal: No: other, neck pain, shoulder pain, arm pain, back pain, hand pain, leg pain, foot pain Skin: No: Rash, Lesions, Jaundice, Bruising, Other Neurological: Other (Headache); No: Weakness, Numbness, Incoordination, Change in speech, Confusion, Seizures Allergies: Coded Allergies: Amoxicillin (Verified Allergy, Severe, 09/15/22) Medications Current Medications Medications Dose Ordered Sig/Tami Route Start Time Stop Time Status Last Admin Dose Admin Ondansetron HCl 4 mg Q4HP PRN IV 07/27/24 21:15 Enoxaparin Sodium 40 mg DAILY SC 07/28/24 10:00 Acetaminophen 650 mg Q6HP PRN PO 07/27/24 21:15 Morphine Sulfate 2 mg Q4HPRN PRN IV 07/27/24 21:15 Nitroglycerin 0.4 mg Q5MINP PRN SL 07/27/24 21:15 Morphine Sulfate 2 mg Q30M PRN IV 07/27/24 21:15 Sodium Chloride 1,000 ml @ 150 mls/hr Q6H40M IV 07/27/24 21:30 Pantoprazole Sodium 40 mg DAILY IV 07/27/24 21:30 07/27/24 22:09 40 MG Ceftriaxone Sodium 50 ml @ 100 mls/hr DAILY IV 07/28/24 10:00 08/03/24 10:29 Exam Vital Signs Vital Signs Date Time Temp Pulse Resp B/P (MAP) Pulse Ox O2 Delivery O2 Flow Rate FiO2 07/27/24 20:01 135/104 (114) 07/27/24 19:59 96 16 07/27/24 19:16 98.3 98 98.3 07/27/24 17:00 Room Air* 0 21 General Appearance: Alert, Oriented X3, Cooperative, No acute distress, moderate distress HEENT: Atraumatic, PERRLA, EOMI, Other (Dry mucosa) Respiratory: Clear to auscultation, Normal air movement, Other (In the room air) Cardiovascular: Regular rate, Normal S1, Normal S2, No murmurs Abdominal: Normal bowel sounds, Soft, No hepatospenomegaly, Other (CVA angle tenderness positive, suprapubic tenderness positive, globulus sensation, foul smelling discharge, evaluated with a presence of a 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.) Extremities: No clubbing, No cyanosis, No edema, Normal pulses, No tenderness/swelling, Other (Low muscle mass) Skin: No rashes, No breakdown, No significant lesion Neuro: Normal gait, Normal speech, Strength at 5/5 X4 ext, Normal tone, Sensation intact, Cranial nerves 3-12 NL, Reflexes 2+, Other (No focal neurolog ical deficits) Psych/Mental Status: Mental status NL, Mood NL, Other (at baseline) Labs/Xrays Labs Test 07/27/24 22:18 07/27/24 16:20 07/27/24 00:00 Range/Units White Blood Count 5.2 4.4-10.8 10^3/uL Red Blood Count 5.04 4.0-5.20 10^6/uL Hemoglobin 13.8 12.2-16.2 g/dL Hematocrit 41.5 36.0-46.0 % Mean Corpuscular Volume 82.5 80.0-100.0 fL Mean Corpuscular Hemoglobin 27.4 L 28.0-32.0 pg Mean Corpuscular Hemoglobin Concent 33.3 32.0-36.0 g/dL Red Cell Distribution Width 15.2 H 11.8-14.3 % Platelet Count 240 140-450 10^3/uL Mean Platelet Volume 8.0 6.9-10.8 fL Neutrophils (%) (Auto) 64.1 37.0-80.0 % Lymphocytes (%) (Auto) 28.6 10.0-50.0 % Monocytes (%) (Auto) 6.1 0.0-12.0 % Eosinophils (%) (Auto) 0.8 0.0-7.0 % Basophils (%) (Auto) 0.4 0.0-2.0 % Neutrophils # (Auto) 3.4 1.6-8.6 10 ^3/uL Lymphocytes # (Auto) 1.5 0.4-5.4 10 ^3/uL Monocytes # (Auto) 0.3 0-1.3 10 ^3/uL Eosinophils # (Auto) 0 0-0.8 10 ^3/uL Basophils # (Auto) 0 0-0.2 10 ^3/uL Nucleated Red Blood Cells 0.0 % Sodium Level 142 136-145 mmol/L Potassium Level 4.0 3.5-5.1 mmol/L Chloride Level 105 98-107 mmol/L Carbon Dioxide Level 28 20-31 mmol/L Anion Gap 9 5-15 Blood Urea Nitrogen 14 9-23 mg/dL Creatinine 1.67 H 0.550-1.02 mg/dL Glomerular Filtration Rate Calc 43 >90 mL/min BUN/Creatinine Ratio 8.4 L 10.0-20.0 Serum Glucose 86 74-106 mg/dL Hemoglobin A1c 5.1 <5.7 % A1C Calcium Level 8.9 8.7-10.4 mg/dL Total Bilirubin 0.5 0.2-1.0 mg/dL Direct Bilirubin 0.1 <0.3 mg/dL Aspartate Amino Transferase (AST) 21 <34 U/L Alanine Aminotransferase (ALT) 18 7-40 U/L Alkaline Phosphatase 113 46-116 U/L Total Protein 7.5 5.7-8.2 g/dL Albumin 4.5 3.2-4.8 g/dL Lipase 40 12-53 U/L Thyroid Stimulating Hormone (TSH) 1.93 0.55-4.78 uIU/mL Beta HCG, Quantitative 0.6 L 1.5-4.2 mIU/mL HIV (1&2) Antibody Negative Negative Urine Color Colorless Yellow Urine Clarity Turbid H Clear Urine pH 6.5 5.0-9.0 Urine Specific [place] 1.007 1.001-1.035 Urine Protein 2+ H Negative Urine Ketones Negative Negative Urine Blood Negative Negative /uL Urine Nitrite 2+ H Negative Urine Bilirubin Negative Negative Urine Urobilinogen Normal Negative mg/dL Urine Leukocyte Esterase 3+ Negative /uL Urine RBC 2 0 - 4 /hpf Urine Microscopic WBC 110 H 0-5 /HPF Urine Squamous Epithelial Cells Few <5 /hpf Urine Bacteria Many H None Seen /hpf Urine Glucose Normal Normal mg/dL Urine Opiates Screen Neg NEGATIVE Urine Fentanyl Screen Neg NEGATIVE Urine Barbiturates Screen Neg NEGATIVE Urine Phencyclidine Screen Neg NEGATIVE Urine Amphetamines Screen Neg NEGATIVE Urine Benzodiazepines Screen Neg NEGATIVE Urine Cocaine Screen Neg NEGATIVE Urine Cannabinoids Screen Neg NEGATIVE Assessment/Plan Assessment/Plan #Right lower quadrant abdominal pain x1 week + Associated nausea, vomiting and diarrhea DD include gastroenteritis, Appendicitis, ovarian cyst, fibroid tumors, complicated UTI: stool workup sent, dc flagyl if GI workup -ve #Dizziness/presyncope, worsened, likely due to underlying infection/ sepsis. Check for lactate. keep NPO + telemetry #Afebrile, otherwise hemodynamically stable, breathing in the room air. #Essential hypertension, uncontrolled, close monitoring to keep 140/90 or below, p.r.. hydralazine IV>150 SBO #H&H stable, no active bleeding #Recurrent UTI and infection, ruled out common immunocompromised joel states including HIV #Complicated UTI, blood culture and urine culture pending, rule out common STIs although not sexually active, check for #Associated pyuria likely due to above, we will upgrade to broader Gram- negative coverage up to meropenem if patient fails to improve in Rocephin. #Sepsis due to above, sepsis protocol with IV fluid, close hemodynamic monitoring and IV antibiotics #MICHAEL due to VMN, avoid nephrotoxic gentle hydration to continue, trend #CKD likely due to chronic postop renal obstruction. On home prophylactic Macrodantin 100 mg hs. #Bilateral renal hydronephrosis with overload cysts #Urinary retention we will bladder volume of 639, straight Cath f unable to void, IV Rocephin to continue. #Acute Generalized headache without neurological changes, CT head stable #PARTS CLASSIFIER shunt: Hydrocephalus status post ventricular peritoneal shunt tube is in place. It is traversing the anterior horn of the lateral ventricles and exiting skull on the right, AAO x4, at baseline, CT head unremarkable otherwise, as needed Tylenol for headache #Stable 2.1 cm left ovarian cyst #Neurogenic bladder Wall irregularity of the urinary bladder with multiple diverticulum #Previously recurrent UTI on chart no ESBL noted, Macrobid, Keflex, ciprofloxacin, Augmentin. #Known allergy mild allergic reaction to amoxicillin only Verified Allergy, Severe, 09/15/22 #Known spinal bifida #Recurrent renal stones, None visualized presumably. #GI prophylaxis with PPI #Possible antibiotic associated diarrhea: If acute GI infection ruled out, consider starting Florastor. PCP: Dr. Santamaria Specialist Relevant To Admission: Urology, this young patient needs evaluation with urology for a more elegant solution to neurogenic bladder, likely outpatient joel. Case discussed with Dr. Cee. Code Status: Full Code, goals of care discussion along with plan of care 39 minutes bedside. Patient admitted in hospital for further management. Agreeable to the plan. Plan discussed with: Patient My Orders Orders - AMANDA CLIFTON RESIDENT Procedure Category Date Status Time Admit ADMIT 07/27/24 Transmitted 21:09 Allergies INDY 07/27/24 In Process 21:09 Code Status CODE 07/27/24 Transmitted 21:09 Ondansetron Hcl PHA 07/27/24 In Process (Zofran) 21:15 Enoxaparin Sodium PHA 07/28/24 In Process (Lovenox) 10:00 Complete Blood Count LAB 07/28/24 Verified 04:00 Comprehensive LAB 07/28/24 Verified Metabolic Panel 04:00 Condition: Serious INDY 07/27/24 In Process 21:09 Acetaminophen Tablet PHA 07/27/24 In Process (Tylenol Tablet) 21:15 Clear Liq Diet DIET 07/28/24 Transmitted Breakfast Morphine Sulfate PHA 07/27/24 In Process Injection 21:15 Nitroglycerin PHA 07/27/24 In Process Sublingual (Ntrostat 21:15 Morphine Sulfate PHA 07/27/24 In Process Injection 21:15 Oxygen By Nasal RT 07/27/24 Transmitted Cannula 21:09 Stat Ekg For Chest INDY 07/27/24 In Process Pain 21:09 Notify Md Of Changes INDY 07/27/24 In Process From Base 21:09 Wire Transfer Clerk For INDY 07/27/24 In Process 24 Hours 21:09 Emergency Dysrhythmia INDY 07/27/24 In Process Protocol 21:09 Rhythm Strips Once INDY 07/27/24 In Process Every Shift 21:09 Kidney US 07/27/24 Resulted 21:19 Sodium Chloride 0.9% PHA 07/27/24 In Process 21:30 Pantoprazole PHA 07/27/24 In Process (Protonix) 21:30 Blood Culture LISA 07/27/24 In Process 21:30 Ceftriaxone 1gm/50ml PHA 07/28/24 In Process D5w (Rocephin) 10:00 Chlamydia/Gc LAB 07/27/24 In Process Amplification 21:33 Straightcath If ORDERS 07/27/24 Transmitted Unable To Void 23:14 Stool Wbc LAB 07/27/24 Logged 23:18 Stool Bacterial LISA 07/27/24 Logged Culture 23:18 Clostridium Difficile LISA 07/27/24 Logged Toxin 23:18 Ova & Parasite Exam LISA 07/27/24 Logged 23:18 Lactic Acid W/ Reflex LAB 07/27/24 In Process Order 23:28 Date of Service: Jul 27, 2024 Billing Provider: NGOC CEE MD Common Visit Codes: [id number] INP/OBS CARE (HIGH) Secondary Visit Codes: [id number] CARE PLAN 30 MINUTES AMANDA CLIFTON RESIDENT Jul 27, 2024 23:51
[2024-07-28] MEDS: ACETAMINOPHEN 325 MG TAB PO PRN (05:28)
[2024-07-28 06:36] LABS: Basophils # (auto) 0 10 ^3/uL (0-0.2); Basophils % (auto) 0.5 % (0.0-2.0); Eosinophils # (auto) 0.1 10 ^3/uL (0-0.8); Eosinophils % (auto) 0.9 % (0.0-7.0); Hematocrit 42.2 % (36.0-46.0); Hemoglobin 14.2 g/dL (12.2-16.2); Lymphocytes # (auto) 0.9 10 ^3/uL (0.4-5.4); Lymphocytes % (auto) 15.5 % (10.0-50.0); Mean Corpuscular Hemoglobin 27.7 pg (28.0-32.0); Mean Corpuscular Hgb Conc. 33.7 g/dL (32.0-36.0); Mean Corpuscular Volume 82.3 fL (80.0-100.0); Monocytes # (auto) 0.4 10 ^3/uL (0-1.3); Monocytes % (auto) 6.1 % (0.0-12.0); Neutrophils # (auto) 4.4 10 ^3/uL (1.6-8.6); Nucleated Red Blood Cells % 0.1 %; Platelet Count (auto) 243 10^3/uL (140-450); Red Blood Cells 5.13 10^6/uL (4.0-5.20); Red Cell Distribution Width 15.2 % (11.8-14.3); White Blood Cell 5.8 10^3/uL (4.4-10.8)
[2024-07-28 06:56] LABS: Alanine Aminotransferase 15 U/L (7-40); Albumin 4.5 g/dL (3.2-4.8); Anion Gap 8 (5-15); Aspartate Aminotransferase 17 U/L (<34); BUN/Creatinine Ratio 8.7 (10.0-20.0); Bilirubin, Total 0.4 mg/dL (0.2-1.0); Blood Urea Nitrogen 13 mg/dL (9-23); Calcium 9.2 mg/dL (8.7-10.4); Carbon Dioxide 28 mmol/L (20-31); Chloride 104 mmol/L (98-107); Glucose 85 mg/dL (74-106); Potassium 4.2 mmol/L (3.5-5.1); Sodium 140 mmol/L (136-145); Total Protein 7.6 g/dL (5.7-8.2)
[2024-07-28 07:00] LABS: Alkaline Phosphatase 122 U/L (46-116)
[2024-07-28 08:57] VITALS: BP 111/69; PULSE 86; RESP 18; TEMP 97.8; O2SAT 97; O2SAT 98
[2024-07-28 09:00] VITALS: BP 111/69; PULSE 86; RESP 18; TEMP 96.4; O2SAT 97
[2024-07-28] MEDS: ENOXAPARIN SOD 40 MG/0.4 ML SYRINGE SC SCH (10:21)
[2024-07-28] MEDS: cefTRIAXone 1GM/50ML D5W 50 ML IV SCH (10:21)
[2024-07-28 13:43] VITALS: BP 135/87; PULSE 83; RESP 98; TEMP 97.5
--- NOTE | 2024-07-28 16:22 | DVHPN2 ---
Subjective c/o Right flank pain Changes from previous H/P or p: Changes Eyes: No Pain, No Vision change, No Conjunctivae inflammation, No Eyelid inflammation, No Other, No Redness ENT: No Ear pain, No Ear discharge, No Nose pain, No Nose discharge, No Nose congestion, No Mouth pain, No Mouth swelling, No Throat pain, No Throat swelling, No Other Cardiovascular: No Chest Pain, No Palpitations, No Orthopnea, No Paroxysmal Noc. Dyspnea, No Edema, No Lt Headedness, No Other Respiratory: No Cough, No Dry, No Shortness of breath, No SOB with excertion, No Wheezing, No Hemoptysis, No Pleuritic Pain, No Sputum, No Other Gastrointestinal: Nausea; No Vomiting; Abdominal Pain, Diarrhea; No Constipation, No Melena, No Hematochezia, No Other Genitourinary: Dysuria, Frequency, Incontinence, Hematuria, Retention, Other (Lower abdominal fullness) Musculoskeletal: No other, No neck pain, No shoulder pain, No arm pain, No back pain, No hand pain, No leg pain, No foot pain Skin: No Rash, No Lesions, No Jaundice, No Bruising, No Other Objective Vitals Vital Signs Date Time Temp Pulse Resp B/P (MAP) Pulse Ox O2 Delivery O2 Flow Rate FiO2 07/28/24 13:43 97.5 83 98 135/87 (103) 97.5 07/28/24 09:00 97 07/28/24 05:19 Room Air* 0 21 Intake/Output Intake and Output 07/28/24 07:00 Intake Total 50 ml Balance 50 ml Intake IV Total 50 ml General Appearance: Alert Lungs: Clear to auscultation, Normal air movement Cardiovascular: Regular rate, Normal S1, Normal S2 Abdomen: Normal bowel sounds, Soft, No tenderness Extremities: No edema Medications Current Medications Medications Dose Ordered Sig/Tami Route Start Time Stop Time Status Last Admin Dose Admin Ondansetron HCl 4 mg Q4HP PRN IV 07/27/24 21:15 Enoxaparin Sodium 40 mg DAILY SC 07/28/24 10:00 07/28/24 10:21 40 MG Acetaminophen 650 mg Q6HP PRN PO 07/27/24 21:15 07/28/24 05:28 650 MG Morphine Sulfate 2 mg Q4HPRN PRN IV 07/27/24 21:15 Nitroglycerin 0.4 mg Q5MINP PRN SL 07/27/24 21:15 Morphine Sulfate 2 mg Q30M PRN IV 07/27/24 21:15 Sodium Chloride 1,000 ml @ 150 mls/hr Q6H40M IV 07/27/24 21:30 07/28/24 10:22 150 MLS/HR Pantoprazole Sodium 40 mg DAILY IV 07/27/24 21:30 07/28/24 10:21 40 MG Ceftriaxone Sodium 50 ml @ 100 mls/hr DAILY IV 07/28/24 10:00 08/03/24 10:29 07/28/24 10:21 100 MLS/HR Laboratory Results Laboratory Tests 07/28/24 06:13 Chemistry Test 07/27/24 16:20 07/28/24 06:13 Albumin 4.5 g/dL (3.2-4.8) 4.5 g/dL (3.2-4.8) Calcium Level 8.9 mg/dL (8.7-10.4) 9.2 mg/dL (8.7-10.4) Total Protein 7.5 g/dL (5.7-8.2) 7.6 g/dL (5.7-8.2) Lipid panel Test 07/27/24 16:20 Lipase 40 U/L (12-53) LFT Test 07/27/24 16:20 07/28/24 06:13 Alanine Aminotransferase (ALT) 18 U/L (7-40) 15 U/L (7-40) Alkaline Phosphatase 113 U/L (46-116) 122 U/L (46-116) H Aspartate Amino Transferase (AST) 21 U/L (<34) 17 U/L (<34) Direct Bilirubin 0.1 mg/dL (<0.3) Total Bilirubin 0.5 mg/dL (0.2-1.0) 0.4 mg/dL (0.2-1.0) HgA1c, TSH Test 07/27/24 16:20 Hemoglobin A1c 5.1 % A1C (<5.7) Thyroid Stimulating Hormone (TSH) 1.93 uIU/mL (0.55-4.78) Urinalysis Test 07/27/24 00:00 Urine Color Colorless (Yellow) Urine Clarity Turbid (Clear) H Urine pH 6.5 (5.0-9.0) Urine Specific [place] 1.007 (1.001-1.035) Urine Protein 2+ (Negative) H Urine Ketones Negative (Negative) Urine Blood Negative /uL (Negative) Urine Nitrite 2+ (Negative) H Urine Bilirubin Negative (Negative) Urine Urobilinogen Normal mg/dL (Negative) Urine Leukocyte Esterase 3+ /uL (Negative) Urine RBC 2 /hpf (0 - 4) Urine Microscopic WBC 110 /HPF (0-5) H Urine Squamous Epithelial Cells Few /hpf (<5) Urine Bacteria Many /hpf (None Seen) H Urine Glucose Normal mg/dL (Normal) Assessment/Plan Assessment/Plan UTI Right pyelonephritis Spina bifida, neurogenic bladder Recurrent UTI Sepsis MICHAEL Bilateral hydronephrosis PLAN: IV fluids Rocephin Urine culture Full code Plan discussed with: Patient My Orders Orders - KARLY MUNIZ MD Procedure Category Date Status Time Urine Bacterial LISA 07/28/24 In Process Culture 12:43 Regular Diet DIET 07/28/24 Transmitted Dinner Date of Service: Jul 28, 2024 Billing Provider: KARLY MUNIZ MD Common Visit Codes: [id number] INP/OBS CARE(HIGH) KARLY MUNIZ MD Jul 28, 2024 16:22
[2024-07-28 21:00] VITALS: BP 106/60; PULSE 103; RESP 20; TEMP 98.5; O2SAT 98
[2024-07-29 01:00] VITALS: BP 98/42; PULSE 92; RESP 20; TEMP 98.7; O2SAT 95
[2024-07-29 05:00] VITALS: BP 101/55; PULSE 101; PULSE 92; RESP 20; RESP 55; TEMP 98.6; O2SAT 98
[2024-07-29 05:37] LABS: Potassium 3.8 mmol/L (3.5-5.1); Sodium 143 mmol/L (136-145)
[2024-07-29 05:38] LABS: Anion Gap 8 (5-15); Calcium 8.7 mg/dL (8.7-10.4); Carbon Dioxide 26 mmol/L (20-31); Chloride 109 mmol/L (98-107)
[2024-07-29 05:43] LABS: BUN/Creatinine Ratio 9.4 (10.0-20.0); Blood Urea Nitrogen 16 mg/dL (9-23); Glucose 96 mg/dL (74-106)
[2024-07-29 09:00] VITALS: BP 117/76; PULSE 104; RESP 20; TEMP 98.5; O2SAT 96
--- NOTE | 2024-07-29 12:50 | DVHPN2 ---
Subjective Doing better She is still has some right flank pain Changes from previous H/P or p: Changes Eyes: No Pain, No Vision change, No Conjunctivae inflammation, No Eyelid inflammation, No Other, No Redness ENT: No Ear pain, No Ear discharge, No Nose pain, No Nose discharge, No Nose congestion, No Mouth pain, No Mouth swelling, No Throat pain, No Throat swelling, No Other Cardiovascular: No Chest Pain, No Palpitations, No Orthopnea, No Paroxysmal Noc. Dyspnea, No Edema, No Lt Headedness, No Other Respiratory: No Cough, No Dry, No Shortness of breath, No SOB with excertion, No Wheezing, No Hemoptysis, No Pleuritic Pain, No Sputum, No Other Gastrointestinal: Nausea; No Vomiting; Abdominal Pain, Diarrhea; No Constipation, No Melena, No Hematochezia, No Other Genitourinary: Dysuria, Frequency, Incontinence, Hematuria, Retention, Other (Lower abdominal fullness) Musculoskeletal: No other, No neck pain, No shoulder pain, No arm pain, No back pain, No hand pain, No leg pain, No foot pain Skin: No Rash, No Lesions, No Jaundice, No Bruising, No Other Objective Vitals Vital Signs Date Time Temp Pulse Resp B/P (MAP) Pulse Ox O2 Delivery O2 Flow Rate FiO2 07/29/24 09:00 98.5 104 20 117/76 (90) 96 98.5 07/29/24 08:00 Room Air* 0 21 Intake/Output Intake and Output 07/29/24 07:00 Intake Total 3250 ml Output Total 824 ml Balance 2426 ml Intake Oral 1450 ml IV Total 1800 ml Output Urine Total 824 ml General Appearance: Alert Lungs: Clear to auscultation, Normal air movement Cardiovascular: Regular rate, Normal S1, Normal S2 Abdomen: Normal bowel sounds, Soft, No tenderness Extremities: No edema Medications Current Medications Medications Dose Ordered Sig/Tami Route Start Time Stop Time Status Last Admin Dose Admin Ondansetron HCl 4 mg Q4HP PRN IV 07/27/24 21:15 Enoxaparin Sodium 40 mg DAILY SC 07/28/24 10:00 07/29/24 10:53 40 MG Acetaminophen 650 mg Q6HP PRN PO 07/27/24 21:15 07/28/24 05:28 650 MG Morphine Sulfate 2 mg Q4HPRN PRN IV 07/27/24 21:15 Nitroglycerin 0.4 mg Q5MINP PRN SL 07/27/24 21:15 Morphine Sulfate 2 mg Q30M PRN IV 07/27/24 21:15 Sodium Chloride 1,000 ml @ 150 mls/hr Q6H40M IV 07/27/24 21:30 07/29/24 03:55 150 MLS/HR Pantoprazole Sodium 40 mg DAILY IV 07/27/24 21:30 07/29/24 10:53 40 MG Ceftriaxone Sodium 50 ml @ 100 mls/hr DAILY IV 07/28/24 10:00 08/03/24 10:29 07/29/24 10:00 100 MLS/HR Laboratory Results Laboratory Tests 07/28/24 06:13 07/29/24 04:50 Chemistry Test 07/29/24 04:50 Calcium Level 8.7 mg/dL (8.7-10.4) Urinalysis Test 07/27/24 00:00 Urine Color Colorless (Yellow) Urine Clarity Turbid (Clear) H Urine pH 6.5 (5.0-9.0) Urine Specific [place] 1.007 (1.001-1.035) Urine Protein 2+ (Negative) H Urine Ketones Negative (Negative) Urine Blood Negative /uL (Negative) Urine Nitrite 2+ (Negative) H Urine Bilirubin Negative (Negative) Urine Urobilinogen Normal mg/dL (Negative) Urine Leukocyte Esterase 3+ /uL (Negative) Urine RBC 2 /hpf (0 - 4) Urine Microscopic WBC 110 /HPF (0-5) H Urine Squamous Epithelial Cells Few /hpf (<5) Urine Bacteria Many /hpf (None Seen) H Urine Glucose Normal mg/dL (Normal) Microbiology Microbiology Date/Time Source Procedure Growth Status 07/27/24 22:18 Blood Blood Culture - Preliminary NO GROWTH AFTER 24 HOURS OF INCUBATION. Resulted 07/27/24 00:00 Voided Urine Urine Culture - Preliminary Resulted Assessment/Plan Assessment/Plan UTI Right pyelonephritis Spina bifida, neurogenic bladder Recurrent UTI Sepsis MICHAEL Bilateral hydronephrosis PLAN: IV fluids Rocephin Urine culture Full code 07/29/2024: Continue the IV antibiotics Continue IV fluids Urine culture showing Gram-negative rods Blood culture is negative Monitor closely The rest of the management will depend on the hospital course Plan discussed with: Patient My Orders Orders - KARLY MUNIZ MD Procedure Category Date Status Time Regular Diet DIET 07/28/24 Transmitted Dinner Date of Service: Jul 29, 2024 Billing Provider: KARLY MUNIZ MD Common Visit Codes: [id number] INP/OBS CARE(HIGH) KARLY MUNIZ MD Jul 29, 2024 12:50
[2024-07-29 13:00] VITALS: BP 111/76; PULSE 104; RESP 20; TEMP 98.1; O2SAT 98
[2024-07-29] MEDS: SODIUM CHLORIDE 0.9% 1,000 ML IV SCH (13:45)
[2024-07-29 17:00] VITALS: BP 127/78; PULSE 105; RESP 20; TEMP 98.9; O2SAT 97
[2024-07-29 21:00] VITALS: BP 134/93; PULSE 104; RESP 18; TEMP 99; O2SAT 97
[2024-07-29] MEDS: LACTULOSE 20Gm/30ML SOLN PO ONE (22:37)
[2024-07-30] VITALS (7 sets, daily range): BP systolic 97–142; BP diastolic 56–108; PULSE 87–111; RESP 18–20; TEMP 98.4–99.6; O2SAT 98–99
[2024-07-30] MEDS: MORPHINE SULFATE INJ 2 MG/ml SYRG IV PRN (00:57)
[2024-07-30 07:04] LABS: Anion Gap 8 (5-15); Carbon Dioxide 26 mmol/L (20-31); Potassium 3.9 mmol/L (3.5-5.1); Sodium 144 mmol/L (136-145)
[2024-07-30 07:05] LABS: Calcium 8.9 mg/dL (8.7-10.4)
[2024-07-30 07:10] LABS: BUN/Creatinine Ratio 9.7 (10.0-20.0); Blood Urea Nitrogen 15 mg/dL (9-23); Glucose 79 mg/dL (74-106)
[2024-07-30 07:18] LABS: Chloride 110 mmol/L (98-107)
[2024-07-30] MEDS ORDERED: hydrALAZINE HCL 20 MG/ML VL IV PRN (16:30)
--- NOTE | 2024-07-30 16:42 | DVHPN2 ---
Subjective Doing better No pain Culture: ESBL E. coli Changes from previous H/P or p: Changes Eyes: No Pain, No Vision change, No Conjunctivae inflammation, No Eyelid inflammation, No Other, No Redness ENT: No Ear pain, No Ear discharge, No Nose pain, No Nose discharge, No Nose congestion, No Mouth pain, No Mouth swelling, No Throat pain, No Throat swelling, No Other Cardiovascular: No Chest Pain, No Palpitations, No Orthopnea, No Paroxysmal Noc. Dyspnea, No Edema, No Lt Headedness, No Other Respiratory: No Cough, No Dry, No Shortness of breath, No SOB with excertion, No Wheezing, No Hemoptysis, No Pleuritic Pain, No Sputum, No Other Gastrointestinal: Nausea; No Vomiting; Abdominal Pain, Diarrhea; No Constipation, No Melena, No Hematochezia, No Other Genitourinary: Dysuria, Frequency, Incontinence, Hematuria, Retention, Other (Lower abdominal fullness) Musculoskeletal: No other, No neck pain, No shoulder pain, No arm pain, No back pain, No hand pain, No leg pain, No foot pain Skin: No Rash, No Lesions, No Jaundice, No Bruising, No Other Objective Vitals Vital Signs Date Time Temp Pulse Resp B/P (MAP) Pulse Ox O2 Delivery O2 Flow Rate FiO2 07/30/24 13:00 98.8 102 20 142/108 (119) 98 98.8 07/29/24 20:00 Room Air* 0 21 Intake/Output Intake and Output 07/30/24 07:00 Intake Total 4354 ml Output Total 5750 ml Balance -1396 ml Intake Oral 4304 ml IV Total 50 ml Output Urine Total 5750 ml General Appearance: Alert Lungs: Clear to auscultation, Normal air movement Cardiovascular: Regular rate, Normal S1, Normal S2 Abdomen: Normal bowel sounds, Soft, No tenderness Extremities: No edema Medications Current Medications Medications Dose Ordered Sig/Tami Route Start Time Stop Time Status Last Admin Dose Admin Ondansetron HCl 4 mg Q4HP PRN IV 07/27/24 21:15 Enoxaparin Sodium 40 mg DAILY SC 07/28/24 10:00 07/30/24 11:17 40 MG Acetaminophen 650 mg Q6HP PRN PO 07/27/24 21:15 07/28/24 05:28 650 MG Morphine Sulfate 2 mg Q4HPRN PRN IV 07/27/24 21:15 07/30/24 00:57 2 MG Nitroglycerin 0.4 mg Q5MINP PRN SL 07/27/24 21:15 Morphine Sulfate 2 mg Q30M PRN IV 07/27/24 21:15 Pantoprazole Sodium 40 mg DAILY IV 07/27/24 21:30 07/30/24 11:16 40 MG Ertapenem 1 gm/ Sodium Chloride 50 ml @ 100 mls/hr DAILY IV 07/31/24 10:00 Hydralazine HCl 10 mg Q6HPRN PRN IV 07/30/24 16:30 UNV Laboratory Results Laboratory Tests 07/28/24 06:13 07/30/24 06:18 Chemistry Test 07/30/24 06:18 Calcium Level 8.9 mg/dL (8.7-10.4) Urinalysis Test 07/27/24 00:00 Urine Color Colorless (Yellow) Urine Clarity Turbid (Clear) H Urine pH 6.5 (5.0-9.0) Urine Specific [place] 1.007 (1.001-1.035) Urine Protein 2+ (Negative) H Urine Ketones Negative (Negative) Urine Blood Negative /uL (Negative) Urine Nitrite 2+ (Negative) H Urine Bilirubin Negative (Negative) Urine Urobilinogen Normal mg/dL (Negative) Urine Leukocyte Esterase 3+ /uL (Negative) Urine RBC 2 /hpf (0 - 4) Urine Microscopic WBC 110 /HPF (0-5) H Urine Squamous Epithelial Cells Few /hpf (<5) Urine Bacteria Many /hpf (None Seen) H Urine Glucose Normal mg/dL (Normal) Microbiology Microbiology Date/Time Source Procedure Growth Status 07/27/24 22:18 Blood Blood Culture - Preliminary NO GROWTH AFTER 48 HOURS OF INCUBATION. Resulted 07/27/24 00:00 Voided Urine Urine Culture - Final Escherichia coli - ESBL Complete Assessment/Plan Assessment/Plan UTI Right pyelonephritis Spina bifida, neurogenic bladder Recurrent UTI Sepsis MICHAEL Bilateral hydronephrosis PLAN: IV fluids Rocephin Urine culture Full code 07/29/2024: Continue the IV antibiotics Continue IV fluids Urine culture showing Gram-negative rods Blood culture is negative Monitor closely The rest of the management will depend on the hospital course 07/30/24: Culture: E. coli ESBL, switch antibiotics to Ertapenem IV Arrange home IV antibiotics: Ertapenem 1 gm IV daily x total of 7 days DC planning for tomorrow Plan discussed with: Patient My Orders Orders - KARLY MUNIZ MD Procedure Category Date Status Time Ertapenem Sod Inj PHA 07/31/24 In Process (Invanz) 10:00 Hydralazine Injection PHA 07/30/24 Logged (Apresoline Inject 16:30 Insert Midline ORDERS 07/30/24 Transmitted 16:21 Date of Service: Jul 30, 2024 Billing Provider: KARLY MUNIZ MD Common Visit Codes: [id number] INP/OBS CARE(HIGH) KARLY MUNIZ MD Jul 30, 2024 16:42
[2024-07-30 17:07] LABS: Chlamydia Trachomatis, NAA Negative (Negative); Neisseria gonorrhoeae, NAA Negative (Negative)
[2024-07-30] MEDS ORDERED: hydrALAZINE HCL 20 MG/ML VL IV SCH (18:00)
[2024-07-30] MEDS: ERTAPENEM SOD INJ 1 GM in SODIUM CHL 0.9% 50 ML IV ONE (19:00)
[2024-07-31] VITALS (7 sets, daily range): BP systolic 101–138; BP diastolic 61–91; PULSE 93–101; RESP 14–17; TEMP 97.4–98.3; O2SAT 98–100
[2024-07-31 06:15] LABS: Potassium 4.1 mmol/L (3.5-5.1); Sodium 142 mmol/L (136-145)
[2024-07-31 06:16] LABS: Anion Gap 8 (5-15); Carbon Dioxide 26 mmol/L (20-31)
[2024-07-31 06:18] LABS: Chloride 108 mmol/L (98-107)
[2024-07-31 06:21] LABS: Glucose 88 mg/dL (74-106)
[2024-07-31 06:22] LABS: BUN/Creatinine Ratio 9.6 (10.0-20.0); Blood Urea Nitrogen 15 mg/dL (9-23)
[2024-07-31] MEDS: ERTAPENEM SOD INJ 1 GM in SODIUM CHL 0.9% 50 ML IV SCH (10:10)
--- NOTE | 2024-07-31 10:23 | DVHDS2 ---
Discharge Summary Date of Admission Jul 27, 2024 at 21:09 Date of Discharge: Jul 31, 2024 Labs/Diagnostic Data: Laboratory Results Test 07/31/24 05:12 07/28/24 06:13 07/27/24 22:18 07/27/24 16:20 Sodium Level 142 mmol/L (136-145) Potassium Level 4.1 mmol/L (3.5-5.1) Chloride Level 108 mmol/L (98-107) Carbon Dioxide Level 26 mmol/L (20-31) Anion Gap 8 (5-15) Blood Urea Nitrogen 15 mg/dL (9-23) Creatinine 1.56 mg/dL (0.550-1.02) Glomerular Filtration Rate Calc 46 mL/min (>90) BUN/Creatinine Ratio 9.6 (10.0-20.0) Serum Glucose 88 mg/dL (74-106) Calcium Level 9.0 mg/dL (8.7-10.4) White Blood Count 5.8 10^3/uL (4.4-10.8) Red Blood Count 5.13 10^6/uL (4.0-5.20) Hemoglobin 14.2 g/dL (12.2-16.2) Hematocrit 42.2 % (36.0-46.0) Mean Corpuscular Volume 82.3 fL (80.0-100.0) Mean Corpuscular Hemoglobin 27.7 pg (28.0-32.0) Mean Corpuscular Hemoglobin Concent 33.7 g/dL (32.0-36.0) Red Cell Distribution Width 15.2 % (11.8-14.3) Platelet Count 243 10^3/uL (140-450) Mean Platelet Volume 8.1 fL (6.9-10.8) Neutrophils (%) (Auto) 77.0 % (37.0-80.0) Lymphocytes (%) (Auto) 15.5 % (10.0-50.0) Monocytes (%) (Auto) 6.1 % (0.0-12.0) Eosinophils (%) (Auto) 0.9 % (0.0-7.0) Basophils (%) (Auto) 0.5 % (0.0-2.0) Neutrophils # (Auto) 4.4 10 ^3/uL (1.6-8.6) Lymphocytes # (Auto) 0.9 10 ^3/uL (0.4-5.4) Monocytes # (Auto) 0.4 10 ^3/uL (0-1.3) Eosinophils # (Auto) 0.1 10 ^3/uL (0-0.8) Basophils # (Auto) 0 10 ^3/uL (0-0.2) Nucleated Red Blood Cells 0.1 % Total Bilirubin 0.4 mg/dL (0.2-1.0) Aspartate Amino Transferase (AST) 17 U/L (<34) Alanine Aminotransferase (ALT) 15 U/L (7-40) Alkaline Phosphatase 122 U/L (46-116) Total Protein 7.6 g/dL (5.7-8.2) Albumin 4.5 g/dL (3.2-4.8) Lactic Acid Level 1.3 mmol/L (0.4-2.0) Hemoglobin A1c 5.1 % A1C (<5.7) Direct Bilirubin 0.1 mg/dL (<0.3) Lipase 40 U/L (12-53) Thyroid Stimulating Hormone (TSH) 1.93 uIU/mL (0.55-4.78) Beta HCG, Quantitative 0.6 mIU/mL (1.5-4.2) HIV (1&2) Antibody Negative (Negative) Test 07/27/24 00:00 Urine Color Colorless (Yellow) Urine Clarity Turbid (Clear) Urine pH 6.5 (5.0-9.0) Urine Specific [place] 1.007 (1.001-1.035) Urine Protein 2+ (Negative) Urine Ketones Negative (Negative) Urine Blood Negative /uL (Negative) Urine Nitrite 2+ (Negative) Urine Bilirubin Negative (Negative) Urine Urobilinogen Normal mg/dL (Negative) Urine Leukocyte Esterase 3+ /uL (Negative) Urine RBC 2 /hpf (0 - 4) Urine Microscopic WBC 110 /HPF (0-5) Urine Squamous Epithelial Cells Few /hpf (<5) Urine Bacteria Many /hpf (None Seen) Urine Glucose Normal mg/dL (Normal) Urine Opiates Screen Neg (NEGATIVE) Urine Fentanyl Screen Neg (NEGATIVE) Urine Barbiturates Screen Neg (NEGATIVE) Urine Phencyclidine Screen Neg (NEGATIVE) Urine Amphetamines Screen Neg (NEGATIVE) Urine Benzodiazepines Screen Neg (NEGATIVE) Urine Cocaine Screen Neg (NEGATIVE) Urine Cannabinoids Screen Neg (NEGATIVE) Chlamydia trachomatis (NITHYA) Negative (Negative) Neisseria gonorrhoeae (NITHYA) Negative (Negative) Other Laboratory Tests 07/31/24 05:12 07/28/24 06:13 Brief Hx & Hospital Course: Final diagnoses: UTI with E coli ESBL Right pyelonephritis Spina bifida, neurogenic bladder Recurrent UTI Sepsis due to UTI MICHAEL hemodynamically mediated due to vasomotor nephropathy Chronic kidney disease stage III Bilateral hydronephrosis 29-year-old female who was admitted for UTI and sepsis and pyelonephritis The culture showed E coli with ESBL therefore the antibiotics were changed to ertapenem She is afebrile now Blood culture was negative White count was normal Kidney function has been stable She was given IV fluids but the creatinine remained at around 1.5-1.6 Discharged home on IV Invanz IV for 5 more days to finish a total course of 7 days Follow up with the primary care physician as soon as possible Condition at Discharge: Stable Final Diagnosis/Problems List UTI with E coli ESBL Right pyelonephritis Spina bifida, neurogenic bladder Recurrent UTI Sepsis due to UTI MICHAEL Bilateral hydronephrosis Discharge Disposition: Home with [facility] Discharge Will this Physician continue t: No Discharge Instruct/Medications Diet: Regular Activity: No Restrictions, As Tolerated Follow Up/Referral: PCP as soon as possible Medications: Invanz 1 g IV daily for 5 days Resume the home medications Discharge Statement: "Patient was advised to return to the ER or call 911 if any headaches, dizziness, shortness of breath, chest pain, abdominal pain, bleeding, fevers, or worsening of medical condition. Patient was counseled about treatment plan, medications, possible side effects, patientverbalized understanding. All questions were answered to the best of my ability. This discharge took greater then 30 minutes in planning, reviewing documentation, counseling the patient, and discussing with other team members." ASSESSMENT ASSESSMENT Assessment UTI with E coli ESBL Right pyelonephritis Spina bifida, neurogenic bladder Recurrent UTI Sepsis due to UTI MICHAEL Bilateral hydronephrosis Date of Service: Jul 31, 2024 Billing Provider: KARLY MUNIZ MD Common Visit Codes: 24677-QRM/OBS DISCH DAY >30min KARLY MUNIZ MD Jul 31, 2024 10:23
== END 2024-07-31 18:07 | disposition home health service (06) | DRG 720 ==
LOC: ER 15:34 → OVERFLOW 21:09 → EAST 07-28 18:07
PROVIDERS: ADMIT Internal Medicine Geriatric Medicine; ATTEND Internal Medicine Geriatric Medicine
DX: A41.51 Sepsis due to Escherichia coli [E. coli] (principal); N17.0 Acute kidney failure with tubular necrosis; N18.30 Chronic kidney disease, stage 3 unspecified; I12.9 Hypertensive chronic kidney disease with stage 1 through stage 4 chronic kidney disease, or unspecified chronic kidney disease; N31.9 Neuromuscular dysfunction of bladder, unspecified; Q05.9 Spina bifida, unspecified; N83.202 Unspecified ovarian cyst, left side; N13.6 Pyonephrosis; I16.9 Hypertensive crisis, unspecified; Z16.12 Extended spectrum beta lactamase (ESBL) resistance; Z98.2 Presence of cerebrospinal fluid drainage device; Z87.440 Personal history of urinary (tract) infections; Z88.1 Allergy status to other antibiotic agents
CPT/HCPCS: 36415; 70450; 76775; 76856; 80048; 80053; 80076; 80307; 81001; 83036; 83605; 83690; 84443; 84702; 85025; 86703; 87040; 87086; 87088; 87186; 96361; 96374; 96375; G0378; J1335; J2405; J2470